=== PATIENT | female | born 1980 | race Caucasian/White ===

== ENCOUNTER 2023-02-06 01:27 | Emergency (ER) | payer OTHER, MEDICAID, SELFPAY ==
[2023-02-06 01:35] VITALS: BP 145/91; PULSE 109; RESP 18; TEMP 37.6; O2SAT 96; BMI 40.3
[2023-02-06 02:03] LABS: MANUAL DIFF FLAG NO
[2023-02-06 02:05] LABS: Basophils Percent Auto 0.2 % (0-2); Eosinophils Percent Auto 0.1 % (0-4); Hematocrit 36.3 % (37.0-47.0); Hemoglobin 11.4 g/dl (12.0-16.0); Imm Gran Abs Auto 0.12 X10*3/uL (0.00-0.03); Imm Gran Pct Auto 0.7 % (0.0-0.4); Lymphocytes Absolute Auto 0.7 X10*3/uL (1.2-4.9); Lymphocytes Percent Auto 3.7 % (20-40); Mean Corpuscular HGB Conc 31.4 g/dl (31.0-35.0); Mean Corpuscular Hemoglobin 23.8 pg (27.0-33.0); Mean Corpuscular Volume 75.8 fL (80.0-98.0); Monocytes Absolute Auto 1.2 X10*3/uL (0.1-1.2); Monocytes Percent Auto 6.5 % (2-11); Neutrophils Absolute Auto 15.9 x10*3/uL (2.0-8.3); Neutrophils Percent Auto 88.8 % (45-73); Platelet Count 249 X10*3/uL (160-400); Red Blood Count 4.79 X10*6/uL (4.20-5.50); Red Cell Distribution Width 19.3 % (11.0-16.0); White Blood Count 17.9 X10*3/uL (4.8-10.8)
[2023-02-06 02:06] VITALS: BP 140/85; PULSE 108; RESP 12; TEMP 38.2; O2SAT 96
--- NOTE | 2023-02-06 02:06 | ED.GENADULT ---
HPI - General Adult General Chief complaint: General Medical Stated complaint: Fever/Vomiting/Weakness Time Seen by Provider: 02/06/23 02:06 Source: patient Mode of arrival: ambulatory Limitations: no limitations History of Present Illness HPI narrative: Patient is 42 years old otherwise healthy been having sore throat fever body aches for last 2 days patient and daughter was also sick last week temperature was 101 degrees at home patient was seen at urgent care earlier today negative COVID/flu/ strep comes back negative patient been nauseated and vomiting unable to hold anything down no abdominal pain Related Data Previous Rx's Medication Instructions Recorded amoxicillin 875 mg-potassium 1 tab PO BID #20 tabs 02/06/23 clavulanate 125 mg tablet ibuprofen 600 mg tablet 600 mg PO Q6H PRN fever or pain 02/06/23 #30 tabs Allergies Allergy/AdvReac Type Severity Reaction Status Date / Time No Known Allergies Allergy Verified 02/06/23 01:35 [No Known Allergies*] Review of Systems Review of Systems: Yes all other systems are reviewed and are negative [facility] Social History Social History Advance Directives: No Advance Directives Information Provided: Yes Physical Exam ED Vital Signs: Vital Signs - 24 hr 02/06/23 01:35 02/06/23 02:06 02/06/23 04:16 Temperature 99.6 F 100.7 F H 99 F Pulse Rate 109 H 108 H 95 Respiratory Rate 18 12 16 Blood Pressure 145/91 H 140/85 H 127/72 Pulse Oximetry 96 96 97 Oxygen Delivery Method Room Air Room Air Room Air BMI result Body Mass Index 40.3 Appearance: Alert. Oriented X3. No acute distress. ENT: Tonsillar exudate bilateral with erythema of the posterior pharynx. Oral Mucosa moist Neck: Normal inspection. Neck supple. CVS: Normal heart rate and rhythm. Pulses normal. Respiratory: No respiratory distress. Equal air entry bilateral, no wheezing/rales/rhonchi Abdomen: Soft and nontender. Bowel sounds are present, Skin: Skin warm and dry. Normal skin color. Normal skin turgor. Extremities: No lower extremity edema. No calf tenderness Neuro: Oriented X 3. No motor deficit. Medications Administered Discontinued Medications Generic Name Dose Route Start Last Admin Trade Name Freq PRN Reason Stop Dose Admin Sodium Chloride 1,000 mls @ 999 mls/hr 02/06/23 02:16 02/06/23 03:27 Ns IV 02/06/23 03:16 Infused .Q1H1M ONE Infusion Ceftriaxone Sodium 1 gm/ 50 mls @ 100 mls/hr 02/06/23 02:16 02/06/23 03:03 Sodium Chloride IV 02/06/23 02:45 Infused ONCE ONE Infusion Sodium Chloride 1,000 mls @ 999 mls/hr 02/06/23 03:46 02/06/23 03:59 Ns IV 02/06/23 04:46 999 mls/hr .Q1H1M ONE Administration Ketorolac Tromethamine 30 mg 02/06/23 02:16 02/06/23 02:33 Ketorolac Tromethamine 30 Mg/Ml Vial IVPUSH 02/06/23 02:17 30 mg ONCE ONE Administration Ondansetron HCl 4 mg 02/06/23 02:16 02/06/23 02:33 Ondansetron Hcl 4 Mg/2 Ml Vial IVPUSH 02/06/23 02:17 4 mg ONCE ONE Administration Prochlorperazine Edisylate 10 mg 02/06/23 03:46 02/06/23 03:59 Prochlorperazine Edisylate 10 Mg/2 Ml Vial IVPUSH 02/06/23 03:47 10 mg ONCE ONE Administration Medical Decision Making Medical Decision Making [facility] Narrative: Patient has significant erythema and exudate in the tonsillar area likely cause fever meeting the criteria for sepsis likely from pharyngitis lactic acid level is normal blood cultures were drawn patient received a dose of Rocephin in the ED will give IV fluids and p.o. challenge patient urine showed RBCs patient currently on her menstrual period Differential Diagnosis Differential Diagnoses: The differential diagnosis associated with the presentation includes Tonsillar abscess/tonsillitis/strep pharyngitis/viral pharyngitis Admission/Observation Consideration of admission/observation: Escalation of care including admission/observation considered Lab Data [facility] Lab Attestation statement: I reviewed the patient's lab results. 02/06/23 01:57 02/06/23 01:57 Labs: Lab Results 02/06/23 02/06/23 02/06/23 Range/Units 01:57 01:57 01:57 WBC 17.9 H (4.8-10.8) X10*3/uL RBC 4.79 (4.20-5.50) X10*6/uL Hgb 11.4 L (12.0-16.0) g/dl Hct 36.3 L (37.0-47.0) % MCV 75.8 L (80.0-98.0) fL MCH 23.8 L (27.0-33.0) pg MCHC 31.4 (31.0-35.0) g/dl RDW 19.3 H (11.0-16.0) % Plt Count 249 (160-400) X10*3/uL MPV 10.0 (9.4-12.3) fL Immature Gran % (Auto) 0.7 H (0.0-0.4) % Neut % (Auto) 88.8 H (45-73) % Lymph % (Auto) 3.7 L (20-40) % [place] % (Auto) 6.5 (2-11) % Eos % (Auto) 0.1 (0-4) % Baso % (Auto) 0.2 (0-2) % Lymph # (Auto) 0.7 L (1.2-4.9) X10*3/uL [place] # (Auto) 1.2 (0.1-1.2) X10*3/uL Eos # (Auto) 0.0 (0.0-0.4) X10*3/uL Baso # (Auto) 0.0 (0.0-0.2) X10*3/uL Abs Immat Gran (auto) 0.12 H (0.00-0.03) X10*3/uL Absolute Neuts (auto) 15.9 H (2.0-8.3) x10*3/uL Absolute Nucleated RBC 0.000 (0.0-0.012) X10*3/uL Nucleated RBC % (auto) 0.0 (0.0-0.2) /100WBC Sodium 135 (135-145) mmol/L Potassium 3.6 (3.3-5.1) mmol/L Chloride 105 (96-108) mmol/L Carbon Dioxide 22 (22-29) mmol/L Anion Gap 12 (12-20) BUN 5 L (9-16) mg/dL Creatinine 0.84 (0.5-1.4) mg/dL Estim Creat Clear Calc 87.3 Estimated GFR > 60 Random Glucose 138 H (60-115) mg/dL Lactic Acid (0.5-2.0) mmol/L Calcium 9.5 (8.4-10.2) mg/dL Total Bilirubin 0.5 (0.0-1.0) mg/dL Direct Bilirubin 0.3 (0.0-0.5) mg/dL AST 27 (5-31) U/L ALT 31 (0-31) U/L Alkaline Phosphatase 98 (39-117) U/L Total Protein 7.8 (6.5-8.0) g/dL Albumin 4.1 (3.5-5.0) g/dL Lipase 11 (8-78) U/L Urine Color Urine Appearance Urine pH (5.0-9.0) Ur Specific [place] (1.005-1.025) Urine Protein (Neg-Trace) mg/dL Urine Glucose (UA) (Negative) mg/dL Urine Ketones (Negative) mg/dL Urine Blood (Negative) Urine Nitrite (Negative) Ur Leukocyte Esterase (Negative) Urine RBC (0-2) /HPF Urine WBC (0-5) /HPF Ur Squamous Epith Cells (0-2) /HPF Urine Bacteria (None Seen) Hyaline Casts (0-2) /LPF COVID-19 ([facility]) (Negative) COVID-19 Clin Com Influenza Type A ([place]) Negative (Negative) Influenza Type B ([place]) Negative (Negative) Influenza A & B Note See Note S. pyogenes GrpA [place] (Negative) 02/06/23 02/06/23 02/06/23 Range/Units 01:57 02:31 02:31 WBC (4.8-10.8) X10*3/uL RBC (4.20-5.50) X10*6/uL Hgb (12.0-16.0) g/dl Hct (37.0-47.0) % MCV (80.0-98.0) fL MCH (27.0-33.0) pg MCHC (31.0-35.0) g/dl RDW (11.0-16.0) % Plt Count (160-400) X10*3/uL MPV (9.4-12.3) fL Immature Gran % (Auto) (0.0-0.4) % Neut % (Auto) (45-73) % Lymph % (Auto) (20-40) % [place] % (Auto) (2-11) % Eos % (Auto) (0-4) % Baso % (Auto) (0-2) % Lymph # (Auto) (1.2-4.9) X10*3/uL [place] # (Auto) (0.1-1.2) X10*3/uL Eos # (Auto) (0.0-0.4) X10*3/uL Baso # (Auto) (0.0-0.2) X10*3/uL Abs Immat Gran (auto) (0.00-0.03) X10*3/uL Absolute Neuts (auto) (2.0-8.3) x10*3/uL Absolute Nucleated RBC (0.0-0.012) X10*3/uL Nucleated RBC % (auto) (0.0-0.2) /100WBC Sodium (135-145) mmol/L Potassium (3.3-5.1) mmol/L Chloride (96-108) mmol/L Carbon Dioxide (22-29) mmol/L Anion Gap (12-20) BUN (9-16) mg/dL Creatinine (0.5-1.4) mg/dL Estim Creat Clear Calc Estimated GFR Random Glucose (60-115) mg/dL Lactic Acid 0.7 (0.5-2.0) mmol/L Calcium (8.4-10.2) mg/dL Total Bilirubin (0.0-1.0) mg/dL Direct Bilirubin (0.0-0.5) mg/dL AST (5-31) U/L ALT (0-31) U/L Alkaline Phosphatase (39-117) U/L Total Protein (6.5-8.0) g/dL Albumin (3.5-5.0) g/dL Lipase (8-78) U/L Urine Color Urine Appearance Urine pH (5.0-9.0) Ur Specific [place] (1.005-1.025) Urine Protein (Neg-Trace) mg/dL Urine Glucose (UA) (Negative) mg/dL Urine Ketones (Negative) mg/dL Urine Blood (Negative) Urine Nitrite (Negative) Ur Leukocyte Esterase (Negative) Urine RBC (0-2) /HPF Urine WBC (0-5) /HPF Ur Squamous Epith Cells (0-2) /HPF Urine Bacteria (None Seen) Hyaline Casts (0-2) /LPF COVID-19 ([facility]) Negative (Negative) COVID-19 Clin Com See Note Influenza Type A ([place]) (Negative) Influenza Type B ([place]) (Negative) Influenza A & B Note S. pyogenes GrpA [place] Negative (Negative) 02/06/23 Range/Units 04:22 WBC (4.8-10.8) X10*3/uL RBC (4.20-5.50) X10*6/uL Hgb (12.0-16.0) g/dl Hct (37.0-47.0) % MCV (80.0-98.0) fL MCH (27.0-33.0) pg MCHC (31.0-35.0) g/dl RDW (11.0-16.0) % Plt Count (160-400) X10*3/uL MPV (9.4-12.3) fL Immature Gran % (Auto) (0.0-0.4) % Neut % (Auto) (45-73) % Lymph % (Auto) (20-40) % [place] % (Auto) (2-11) % Eos % (Auto) (0-4) % Baso % (Auto) (0-2) % Lymph # (Auto) (1.2-4.9) X10*3/uL [place] # (Auto) (0.1-1.2) X10*3/uL Eos # (Auto) (0.0-0.4) X10*3/uL Baso # (Auto) (0.0-0.2) X10*3/uL Abs Immat Gran (auto) (0.00-0.03) X10*3/uL Absolute Neuts (auto) (2.0-8.3) x10*3/uL Absolute Nucleated RBC (0.0-0.012) X10*3/uL Nucleated RBC % (auto) (0.0-0.2) /100WBC Sodium (135-145) mmol/L Potassium (3.3-5.1) mmol/L Chloride (96-108) mmol/L Carbon Dioxide (22-29) mmol/L Anion Gap (12-20) BUN (9-16) mg/dL Creatinine (0.5-1.4) mg/dL Estim Creat Clear Calc Estimated GFR Random Glucose (60-115) mg/dL Lactic Acid (0.5-2.0) mmol/L Calcium (8.4-10.2) mg/dL Total Bilirubin (0.0-1.0) mg/dL Direct Bilirubin (0.0-0.5) mg/dL AST (5-31) U/L ALT (0-31) U/L Alkaline Phosphatase (39-117) U/L Total Protein (6.5-8.0) g/dL Albumin (3.5-5.0) g/dL Lipase (8-78) U/L Urine Color Yellow Urine Appearance Turbid Urine pH 5.5 (5.0-9.0) Ur Specific [place] 1.015 (1.005-1.025) Urine Protein 30 (1+) H (Neg-Trace) mg/dL Urine Glucose (UA) Negative (Negative) mg/dL Urine Ketones 15 (Negative) mg/dL Urine Blood Large (3+) H (Negative) Urine Nitrite Negative (Negative) Ur Leukocyte Esterase Trace H (Negative) Urine RBC 11-20 H (0-2) /HPF Urine WBC 0-5 (0-5) /HPF Ur Squamous Epith Cells 3-5 (0-2) /HPF Urine Bacteria Trace (None Seen) Hyaline Casts 0-2 (0-2) /LPF COVID-19 ([facility]) (Negative) COVID-19 Clin Com Influenza Type A ([place]) (Negative) Influenza Type B ([place]) (Negative) Influenza A & B Note S. pyogenes GrpA [place] (Negative) Discharge Plan Discharge Clinical Impression: Acute bacterial pharyngitis Patient Disposition: Home, Self-Care Instructions: Pharyngitis (ED) Additional Instructions: Drink plenty of fluids Take antibiotic as prescribed Tylenol/Motrin for fever and pain Report to the ER/PCP if not better Prescriptions: New ibuprofen 600 mg tablet 600 mg PO Q6H PRN (Reason: fever or pain) Qty: 30 0RF amoxicillin-pot clavulanate 875-125 mg tablet 1 tab PO BID Qty: 20 0RF
[2023-02-06 02:19] LABS: Alanine Aminotransferase 31 U/L (0-31); Albumin Level 4.1 g/dL (3.5-5.0); Alkaline Phosphatase 98 U/L (39-117); Anion Gap 12 (12-20); Aspartate Amino Transferase 27 U/L (5-31); Bilirubin Direct 0.3 mg/dL (0.0-0.5); Bilirubin Total 0.5 mg/dL (0.0-1.0); Blood Urea Nitrogen 5 mg/dL (9-16); COVID-19 Test Negative (Negative); Calcium 9.5 mg/dL (8.4-10.2); Carbon Dioxide 22 mmol/L (22-29); Chloride 105 mmol/L (96-108); Creatinine Clr Calc Pharmacy 87.3; Estimated Glomerular Filt Rate > 60; Glucose Random 138 mg/dL (60-115); IDNOW Serial# 08D9AD1C; IDNOW Serial# BCCEAD1C; Influenza A Negative (Negative); Influenza B2 Negative (Negative); Lipase 11 U/L (8-78); Potassium 3.6 mmol/L (3.3-5.1); Sodium 135 mmol/L (135-145); Total Protein 7.8 g/dL (6.5-8.0)
--- NOTE | 2023-02-06 02:29 | PC.NURSE ---
iv line placed and blood cultures drawn. strep swab sent.
[2023-02-06] MEDS: cefTRIAXone sodium 1 GM in 0.9 % Sodium Chloride 50 ML IV (02:33)
[2023-02-06] MEDS: ondansetron HCL 4 MG/2 ML VIAL IVPUSH (02:33)
[2023-02-06] MEDS: Ketorolac Tromethamine 30 MG/ML VIAL IVPUSH (02:33)
[2023-02-06] MEDS: 0.9 % Sodium Chloride 1,000 ML 999 ML IV ×2 (02:34→03:59)
[2023-02-06 02:44] LABS: IDNOW Serial# 08D9AD1C; Strep A Nucleic Acid Negative (Negative)
[2023-02-06 02:52] LABS: Lactic Acid 0.7 mmol/L (0.5-2.0)
[2023-02-06] MEDS: Prochlorperazine Edisylate 10 MG/2 ML VIAL IVPUSH (03:59)
[2023-02-06 04:16] VITALS: BP 127/72; PULSE 95; RESP 16; TEMP 37.2; O2SAT 97
[2023-02-06 04:29] LABS: Appearance Urine Turbid; Color Urine Yellow; Glucose Urine UA Negative (Negative); Leukocyte Esterase Urine Trace (Negative); Nitrite Urine Negative (Negative); PH 5.5 (5.0-9.0); Specific Gravity - Urine 1.015 (1.005-1.025); UMIC TRIGGER UACC YES; Urine Blood Large (3+) (Negative); Urine Ketones 15 mg/dL (Negative); Urine Protein 30 (1+) mg/dL (Neg-Trace)
[2023-02-06 04:31] LABS: Bacteria Urine Trace (None Seen); Hyaline Casts Urine 0-2 /LPF (0-2); WBC Urine 0-5 /HPF (0-5)
[2023-02-06 05:16] VITALS: PULSE 97; RESP 17; TEMP 37.1; O2SAT 98
--- NOTE | 2023-02-06 05:17 | PC.NURSE ---
pt reports feeling much better after compazine administration and second liter bolus of fluids. pt appearing more comfortable. HR and temperature improved. respirations even and unlabored.
== END 2023-02-06 05:19 | disposition home or self-care (01) ==
PROVIDERS: Emergency Provider Internal Medicine
DX: J02.9 Acute pharyngitis, unspecified (principal); R50.9 Fever, unspecified; R11.2 Nausea with vomiting, unspecified; Z20.822 Contact with and (suspected) exposure to COVID-19; Z20.828 Contact with and (suspected) exposure to other viral communicable diseases; Z79.899 Other long term (current) drug therapy
CPT/HCPCS: 36415; 80048; 80076; 81001; 83605; 83690; 85025; 87040; 87502; 87635; 87651; 96361; 96365; 96375; 99284; J0696; J1885; J2405

== ENCOUNTER 2024-03-27 12:40 | Emergency (ER) | payer BC, OTHER, SELFPAY ==
--- NOTE | ~2024-03-27 | XR_ITS ---
STUDY: Right ankle and foot INDICATION: Rolled ankle yesterday, pain laterally. COMPARISON: None TECHNIQUE: 2 view right ankle, 3 view right foot FINDINGS: Mild lateral soft tissue swelling about the ankle but no fracture or dislocation. Mortise is intact. Alignment and articulations of the foot are maintained. Multiple rounded calcifications identified lateral plantar aspect of the foot at the level of the cuboid. Calcaneal spurring. No focal soft tissue swelling. XR/XR foot RT min 3V IMPRESSION: Mild lateral ankle soft tissue swelling. No acute bony pathology right ankle and foot. Electronically signed by: Guerita Benjamin MD 03/27/2024 03:08 PM EDT
--- NOTE | ~2024-03-27 | XR_ITS ---
STUDY: Right ankle and foot INDICATION: Rolled ankle yesterday, pain laterally. COMPARISON: None TECHNIQUE: 2 view right ankle, 3 view right foot FINDINGS: Mild lateral soft tissue swelling about the ankle but no fracture or dislocation. Mortise is intact. Alignment and articulations of the foot are maintained. Multiple rounded calcifications identified lateral plantar aspect of the foot at the level of the cuboid. Calcaneal spurring. No focal soft tissue swelling. XR/XR ankle RT min 3V IMPRESSION: Mild lateral ankle soft tissue swelling. No acute bony pathology right ankle and foot. Electronically signed by: Guerita Benjamin MD 03/27/2024 03:08 PM EDT
[2024-03-27 13:36] VITALS: BP 142/88; PULSE 94; RESP 20; TEMP 36.8; O2SAT 100; BMI 37.4
--- NOTE | 2024-03-27 13:41 | ED_ITS ---
HPI - Extremity Injury (Lower) General Chief Complaint: Extremity Injury, Lower Stated Complaint: rolled ankle Time Seen by Provider: 03/27/24 13:44 Source: patient, RN notes reviewed and old records reviewed Mode of arrival: ambulatory History of Present Illness ED Provider: Carmen Kahn PA-C HPI Narrative: 43-year-old female with no significant past medical history presenting to the ED complaining of right ankle pain and swelling s/p rolling ankle while walking to vehicle yesterday. Denies fall all the way to ground. Reports increasing pain today/with ambulation and movement. Denies numbness, tingling, weakness, injury to the area, head trauma or LOC Related Data Previous Rx's ?Medication ?Instructions ?Recorded amoxicillin 875 mg-potassium 1 tab PO BID #20 tabs 02/06/23 clavulanate 125 mg tablet ibuprofen 600 mg tablet 600 mg PO Q6H PRN fever or pain 02/06/23 #30 tabs Allergies Allergy/AdvReac Type Severity Reaction Status Date / Time No Known Allergies Allergy Verified 03/27/24 13:37 [No Known Allergies*] Review of Systems Review of Systems: Yes all other systems are reviewed and are negative Constitutional: Constitutional: Reports as per HPI [facility] Past Medical History Attestation statement: The following information was validated with the patient. Source: old records reviewed Social History Social History Advance Directives: No Do you have a plan to hurt others: No Plan Physical Exam Vital Signs: Vital Signs: Last Vital Signs Temp 97.8 F 03/27/24 15:06 Pulse 88 03/27/24 15:06 Resp 16 03/27/24 15:06 BP 133/86 03/27/24 15:06 Pulse Ox 98 03/27/24 15:06 O2 Del Method Room Air 03/27/24 15:06 BMI result Body Mass Index 37.4 Const: General: cooperative, healthy appearing and no acute distress Orie ntation/consciousness: patient oriented x3 Limitations: no limitations HEENT: Head: Yes normal to inspection and Yes atraumatic Ears: hearing grossly normal bilaterally General nose exam: Normal external nose present Face and sinus: Yes normal facial exam Eyes: General: appearance normal, both eyes and all related structures EOM: EOMs intact bilaterally Neck: Neck: Yes normal visual inspection and Yes no meningeal signs Resp: Effort & Inspection: normal respiratory effort and no respiratory distress Cardio: Rate: regular rate Skin: Rashes: no rashes Wounds: no wounds Neuro: General: patient oriented x3, tone normal and no meningeal signs Cranial nerves: Yes CN's II-XII intact bilaterally Gait exam (Neuro): Normal gait present Extrem: Other: Right lateral malleolus with appreciable swelling and tenderness to palpation. Limited ROM secondary to pain. Proximal foot with mild tenderness. Neurovascularly intact. No crepitus. Course Course Course Narrative: This is a rapid medical exam performed by Delicia Handley PA-C. The patient is a 43-year-old female who presents with right ankle sprain. Patient states she was walking to her car when she rolled her ankle. The ankle is currently wrapped, she has a minimal flexion and extension, she has tenderness to palpation along lateral aspect of the ankle. With some extension to the metatarsals. We will obtain x-rays of the foot and ankle, giving Tylenol. No indication for labs. XR foot RT min 3V/XR ankle RT min 3V IMPRESSION: Mild lateral ankle soft tissue swelling. No acute bony pathology right ankle and foot. > Aircast applied Results discussed with patient including worrisome signs and symptoms and strict return precautions, and when to return to the emergency department. They verbalized understanding and feel safe for discharge at this time. Medications Administered Discontinued Medications Generic Name Dose Route Start Last Admin Trade Name Freq PRN Reason Stop Dose Admin Acetaminophen 975 mg 03/27/24 13:40 03/27/24 14:37 Acetaminophen 325 Mg Tablet PO 03/27/24 13:41 975 mg ONCE ONE Administration Medical Decision Making Medical Decision Making MDM Narrative: 43-year-old female with no significant past medical history presenting to the ED complaining of right ankle pain and swelling s/p rolling ankle while walking to vehicle yesterday. On exam vital signs stable, NAD, nontoxic appearing, physical exam as noted above. Concern for ankle sprain vs fracture. No evidence of septic joint/arthritis or cellulitis Plan: X-rays Please refer to course for remaining clinical decision making, interpretation of labs/imaging results, and discussions with consultants and/or family members. Differential Diagnosis Differential Diagnoses: The differential diagnosis associated with the presentation includes As above Independent Interpretation I performed an independent interpretation of an: Plain X-Ray Radiology Impression Discussion of test interpretation with radiology: I have reviewed the radiologist's reading. External Record Review External record reviewed: Inpatient record, Office record, Outpatient record, Prior outpatient labs, Prior outpatient radiology, Primary care record and Outside ED record Tests considered The following testing was considered but not selected: As above Prescription Management I considered prescription management with: Pain Medication Discharge Plan Discharge Clinical Impression: Ankle sprain and strain Patient Disposition: Home, Self-Care Instructions: Ankle Sprain (DC) Additional Instructions: Your x-ray shows soft tissue swelling. No fracture. Wear Aircast as needed for comfort and stability Ice and elevate Take ibuprofen and Tylenol for pain/swelling Follow up with her doctor If symptoms persist or worsen return to the ED Prescriptions: No Action ibuprofen 600 mg tablet 600 mg PO Q6H PRN (Reason: fever or pain) Qty: 30 0RF amoxicillin-pot clavulanate 875-125 mg tablet 1 tab PO BID Qty: 20 0RF Referrals: Linsey White PA-C [Primary Care Provider] - 1 week Print Language: Somali
[2024-03-27] MEDS: Acetaminophen 325 MG TABLET 975 MG PO (14:37)
[2024-03-27 15:06] VITALS: BP 133/86; PULSE 88; RESP 16; TEMP 36.6; O2SAT 98
[2024-03-27 16:57] VITALS: BP 133/86; PULSE 88; RESP 16; TEMP 36.6; O2SAT 98
== END 2024-03-27 16:57 | disposition home or self-care (01) ==
PROVIDERS: Emergency Provider Emergency Medicine; PCP Physician Assistant Medical
DX: S93.401A Sprain of unspecified ligament of right ankle, initial encounter (principal); X50.1XXA Overexertion from prolonged static or awkward postures, initial encounter; Y93.89 Activity, other specified; Y92.89 Other specified places as the place of occurrence of the external cause; Y99.8 Other external cause status
CPT/HCPCS: 73610; 73630; 99283; 99284

== ENCOUNTER 2024-06-08 19:16 | Emergency (ER) | payer OTHER, SELFPAY ==
--- NOTE | 2024-06-08 | ECG_ITS ---
Test Reason : TACHYCARDIA Blood Pressure : / mmHG Vent. Rate : 121 BPM Atrial Rate : 121 BPM P-R Int : 132 ms QRS Dur : 082 ms QT Int : 314 ms P-R-T Axes : 040 025 -06 degrees QTc Int : 445 ms Sinus tachycardia Nonspecific T wave abnormality Abnormal ECG No previous ECGs available Referred By: Kaylee Álvarez Electronically Signed By:CHRISTOPH GARCIA MD
--- NOTE | ~2024-06-08 | XR_ITS ---
CLINICAL HISTORY: sob, cp Chest Radiograph Comparison: 09/21/17 Findings: No cardiomegaly. Normal mediastinal contours. No pneumothorax. No opacity. No pleural effusion. Normal upper abdomen. No acute fracture. Impression: No acute findings. This document has been electronically signed by: Marissa Elliott MD on 06/08/2024 20:33:45
--- NOTE | ~2024-06-08 | CT_ITS ---
CLINICAL HISTORY: CP, Tachycardic, + dimer CT angiography chest with contrast. 3D Postprocessing. Comparison: CR - XR CHEST 1V - 06/08/24 19:55 EST Findings: The heart is normal size. RV/LV ratio is normal. The thoracic aorta is normal caliber. No pulmonary artery filling defects. The visualized thyroid and mediastinum are unremarkable. Focal area of infiltrate and reticulonodular opacities in the right lower lobe. There is a 1.5 cm lung cyst in the superior segment of the left lower lobe. No effusion or pneumothorax. The visualized upper abdomen is unremarkable. The bones are intact. IMPRESSION: 1. No pulmonary embolus. 2. Right lower lobe pneumonia. This document has been electronically signed by: Nam Kent MD on 06/09/2024 00:32:49
[2024-06-08 19:27] VITALS: BP 164/91; PULSE 137; RESP 20; TEMP 37.4; O2SAT 98; BMI 37.4
--- NOTE | 2024-06-08 19:41 | ED.SOB ---
HPI - SOB/Dyspnea General Chief Complaint: Dyspnea Stated Complaint: gen med Time Seen by Provider: 06/08/24 19:18 Source: patient Mode of arrival: ambulatory Limitations: no limitations History of Present Illness ED Provider: Dr. Kaylee Álvarez HPI Narrative: Patient comes in the emergency room complaining of chest tightness radiating towards the back. Patient states that she has had on and off of pneumonia infections treated with antibiotics, inhalers and prednisone although she is not asthmatic. Patient states that the last time was April of 2024. Patient states that since then she has not quite recovered, ongoing cough. However, today patient was at work, states that she started having more rib pain/back pain. Patient states that over last 2-3 days, her Apple watch has been warning her that she has an increased heart rate between 130-140. Patient denies any fever or chills. Related Data Previous Rx's ?Medication ?Instructions ?Recorded amoxicillin 875 mg-potassium 1 tab PO BID #20 tabs 02/06/23 clavulanate 125 mg tablet ibuprofen 600 mg tablet 600 mg PO Q6H PRN fever or pain 02/06/23 #30 tabs benzonatate 100 mg capsule 100 mg PO TID PRN cough #15 caps 06/09/24 levofloxacin 750 mg tablet 750 mg PO DAILY #9 tabs 06/09/24 Allergies Allergy/AdvReac Type Severity Reaction Status Date / Time No Known Allergies Allergy Verified 06/08/24 19:30 [No Known Allergies*] Review of Systems Review of Systems: Constitutional : No Weight loss, No Fever, No Chills, No Night Sweats, No Fatigue, No Malaise ENT/Mouth : No Hearing loss, No Ear Pain, No Nasal Congestion, No Sinus Pain, No Hoarseness, No sore throat, No Rhinorrhea, No Swallowing Difficulty Eyes: No Eye Pain, No Swelling, No Redness, No Foreign Body, No Discharge, No Vision Changes Cardiovascular : No Chest Pain, No SOB, No Dyspnea on Exertion, No Orthopnea, No Edema, complaining of palpitations and dizziness Respiratory : Complaining of cough for several weeks Gastrointestinal : No Nausea, No Vomiting, No Diarrhea, No Constipation, No abdominal Pain, No Hematochezia, No Melena Genitourinary : no irregular bleeding, No Dysuria, No Urinary Frequency, No Hematuria, No Urinary Incontinence, No Urgency, No Flank Pain, No Urinary Flow Changes, No Hesitancy Musculoskeletal : No joint pain, No Myalgias, No Joint Swelling Skin : No Skin Lesions, No rash Neuro : No Weakness, No Numbness, No Paresthesias, No Loss of Consciousness, No Dizziness, No Headache Psych : No Anxiety/Panic, No Depression, No SI/HI/AH/VH, No Social Issues, Heme/Lymph: No Bruising, No Bleeding,No Lymphadenopathy Endocrine : No Polyuria, No Polydipsia, No Temperature Intolerance [facility] Social History Social History Smoked in Last 30 Days: No Use of substances other than those prescribed or required for medical reasons: No Advance Directives: No Advance Directives Information Provided: Yes Do you have a plan to hurt others: No Plan Physical Exam Vital Signs: Vital Signs: Last Vital Signs Temp 98.5 F 06/09/24 00:45 Pulse 91 06/09/24 00:45 Resp 16 06/09/24 00:45 BP 130/63 06/09/24 00:45 Pulse Ox 99 06/09/24 00:45 O2 Del Method Room Air 06/09/24 00:45 BMI result Body Mass Index 37.4 Const: Other: Appearance: Alert. Oriented X3. No acute distress. Eyes: Pupils equal, round and reactive to light. ENT: Pharynx normal. Neck: Normal inspection. Neck supple. No lymph nodes noted. No crepitus CVS: Tachycardic, regular rhythm, heart rate in the 120s to 130s. Pulses normal. Normal S1 and S2 Respiratory: No respiratory distress. Breath sounds normal. No Wheezing. No rales Abdomen: Soft and nontender. No rigidity. No distention. Skin: Skin warm and dry. Normal skin color. Normal skin turgor. Extremities: No lower extremity edema. No Lacerations. No Rash Neuro: Oriented X 3. No motor deficit. No sensory deficit. Moving all extremities. No slurred speech. CN 2 through 12 grossly intact Psych: calm, cooperative, normal affect Medications Administered Discontinued Medications Generic Name Dose Route Start Last Admin Trade Name Freq PRN Reason Stop Dose Admin Sodium Chloride 1,000 mls @ 999 mls/hr 06/08/24 19:34 06/08/24 20:57 Ns IVCONT 06/08/24 20:34 Infused .Q1H1M ONE Infusion Iohexol 65 ml 06/08/24 23:41 06/08/24 23:42 Iohexol 350 Mg/Ml 100 Ml Infus..Btl IV 06/08/24 23:42 65 ml ONCE ONE Administration Ketorolac Tromethamine 30 mg 06/08/24 19:43 06/08/24 19:59 Ketorolac Tromethamine 30 Mg/Ml Vial IVPUSH 06/08/24 19:44 30 mg ONCE ONE Administration Medical Decision Making Medical Decision Making [facility] Narrative: My interpretation of labs: Patient's white blood cell count 17.3, no significant electrolyte abnormality, troponin negative, hCG negative Chest x-ray does not show any acute abnormality. However, CTA does show right lower lobe pneumonia, no PE. I discussed with the patient that is concerning that she has had 4 episodes of pneumonia in less than a year. Patient will follow-up with pulmonology, patient was provided with the phone number for Dr. Lin's office Patient was given the 1st dose of levofloxacin 750 mg Patient is not wheezing, patient does not have any history of asthma or COPD, at this time, so it is not indicated. Lab Data [facility] Lab Attestation statement: I reviewed the patient's lab results. 06/08/24 20:02 06/08/24 20:02 Labs: Lab Results 06/08/24 06/08/24 06/08/24 Range/Units 20:01 20:02 20:07 WBC 17.3 H (4.8-10.8) X10*3/uL RBC 4.46 (4.20-5.50) X10*6/uL Hgb 10.3 L (12.0-16.0) g/dl Hct 33.0 L (37.0-47.0) % MCV 74.0 L (80.0-98.0) fL MCH 23.1 L (27.0-33.0) pg MCHC 31.2 (31.0-35.0) g/dl RDW 20.6 H (11.0-16.0) % Plt Count 340 D (160-400) X10*3/uL MPV 10.2 (9.4-12.3) fL Immature Gran % (Auto) 0.8 H (0.0-0.4) % Neut % (Auto) 84.9 H (45-73) % Lymph % (Auto) 8.5 L (20-40) % [place] % (Auto) 5.0 (2-11) % Eos % (Auto) 0.6 (0-4) % Baso % (Auto) 0.2 (0-2) % Lymph # (Auto) 1.5 (1.2-4.9) X10*3/uL [place] # (Auto) 0.9 (0.1-1.2) X10*3/uL Eos # (Auto) 0.1 (0.0-0.4) X10*3/uL Baso # (Auto) 0.0 (0.0-0.2) X10*3/uL Abs Immat Gran (auto) 0.14 H (0.00-0.03) X10*3/uL Absolute Neuts (auto) 14.7 H (2.0-8.3) x10*3/uL Absolute Nucleated RBC 0.000 (0.0-0.012) X10*3/uL Nucleated RBC % (auto) 0.0 (0.0-0.2) /100WBC PT 11.5 (10.9-12.4) SEC INR 1.0 (0.9-1.1) D-Dimer High Sensitivty 1120 NG/ML VBG pH 7.48 H (7.32-7.43) VBG pCO2 32 mmHg VBG pO2 48 mmHg VBG HCO3 24 (22-26) mmol/L VBG O2 Saturation 79.0 % VBG Base Excess 1.6 mmol/L Sodium 136 (135-145) mmol/L Potassium 3.3 (3.3-5.1) mmol/L Chloride 107 (96-108) mmol/L Carbon Dioxide 22 (22-29) mmol/L Anion Gap 10 L (12-20) BUN 8 L (9-16) mg/dL Creatinine 0.66 (0.5-1.4) mg/dL Estim Creat Clear Calc 104.2 Estimated GFR > 60 Random Glucose 143 H (60-115) mg/dL Lactic Acid 1.0 (0.5-2.0) mmol/L Calcium 8.8 D (8.4-10.2) mg/dL Total Bilirubin 0.4 (0.0-1.0) mg/dL Direct Bilirubin 0.1 (0.0-0.5) mg/dL AST 21 (5-31) U/L ALT 27 (0-31) U/L Alkaline Phosphatase 99 (39-117) U/L Troponin I High Sens < 2.7 (<3.5-17.0) ng/L Total Protein 7.5 (6.5-8.0) g/dL Albumin 3.9 (3.5-5.0) g/dL Beta HCG, Quant < 2 mIU/mL Influenza Type A (PCR) NEGATIVE (Negative) Influenza Type B (PCR) NEGATIVE (Negative) RSV RNA Qual (PCR) NEGATIVE (Negative) SARS-CoV-2 RNA (RT-PCR) NEGATIVE (Negative) Independent Interpretation I performed an independent interpretation of an: Plain X-Ray and CT Scan Radiology Impression Discussion of test interpretation with radiology: I have reviewed the radiologist's reading. Radiologist Impression: Findings: The heart is normal size. RV/LV ratio is normal. The thoracic aorta is normal caliber. No pulmonary artery filling defects. The visualized thyroid and mediastinum are unremarkable. Focal area of infiltrate and reticulonodular opacities in the right lower lobe. There is a 1.5 cm lung cyst in the superior segment of the left lower lobe. No effusion or pneumothorax. The visualized upper abdomen is unremarkable. The bones are intact. IMPRESSION: 1. No pulmonary embolus. 2. Right lower lobe pneumonia. Critical Care Time Critical Care Time Critical Care Time: Yes Total Critical Care Time: 45 Attestation: I have personally provided critical care time. Time includes review of lab data, radiology results, discussion with consultants, and monitoring for potential decompensation. Intervention performed as documented. Discharge Plan Discharge Clinical Impression: Pneumonia Patient Disposition: Home, Self-Care Instructions: Pneumonia (ED) Additional Instructions: Please follow-up with your primary care physician tomorrow. If you have any worsening or new symptoms, please return to the emergency room or call 911 Prescriptions: New levofloxacin 750 mg tablet 750 mg PO DAILY Qty: 9 0RF benzonatate 100 mg capsule 100 mg PO TID PRN (Reason: cough) Qty: 15 0RF No Action ibuprofen 600 mg tablet 600 mg PO Q6H PRN (Reason: fever or pain) Qty: 30 0RF amoxicillin-pot clavulanate 875-125 mg tablet 1 tab PO BID Qty: 20 0RF Referrals: Davidson Lin MD [Physician] - 06/11/24 Print Language: Chadian
[2024-06-08] MEDS: 0.9 % Sodium Chloride 1,000 ML 999 ML IVCONT (19:55)
[2024-06-08] MEDS: Ketorolac Tromethamine 30 MG/ML VIAL IVPUSH (19:59)
[2024-06-08 20:09] LABS: MANUAL DIFF FLAG NO
[2024-06-08 20:12] LABS: VBG Base Excess 1.6 mmol/L; VBG HCO3 24 mmol/L (22-26); VBG pCO2 32 mmHg; VBG pH 7.48 (7.32-7.43); VBG pO2 48 mmHg
[2024-06-08 20:13] LABS: Venous Blood Gas Refer to POC result
[2024-06-08 20:24] LABS: Basophils Percent Auto 0.2 % (0-2); Eosinophils Absolute Auto 0.1 X10*3/uL (0.0-0.4); Eosinophils Percent Auto 0.6 % (0-4); Hemoglobin 10.3 g/dl (12.0-16.0); Imm Gran Abs Auto 0.14 X10*3/uL (0.00-0.03); Imm Gran Pct Auto 0.8 % (0.0-0.4); Lymphocytes Absolute Auto 1.5 X10*3/uL (1.2-4.9); Lymphocytes Percent Auto 8.5 % (20-40); Mean Corpuscular HGB Conc 31.2 g/dl (31.0-35.0); Mean Corpuscular Hemoglobin 23.1 pg (27.0-33.0); Mean Platelet Volume 10.2 fL (9.4-12.3); Monocytes Absolute Auto 0.9 X10*3/uL (0.1-1.2); Neutrophils Absolute Auto 14.7 x10*3/uL (2.0-8.3); Neutrophils Percent Auto 84.9 % (45-73); Platelet Count 340 X10*3/uL (160-400); Red Blood Count 4.46 X10*6/uL (4.20-5.50); Red Cell Distribution Width 20.6 % (11.0-16.0); White Blood Count 17.3 X10*3/uL (4.8-10.8)
[2024-06-08 20:28] LABS: Prothrombin Time 11.5 SEC (10.9-12.4)
[2024-06-08 20:31] LABS: Alanine Aminotransferase 27 U/L (0-31); Albumin Level 3.9 g/dL (3.5-5.0); Alkaline Phosphatase 99 U/L (39-117); Anion Gap 10 (12-20); Aspartate Amino Transferase 21 U/L (5-31); Bilirubin Direct 0.1 mg/dL (0.0-0.5); Bilirubin Total 0.4 mg/dL (0.0-1.0); Blood Urea Nitrogen 8 mg/dL (9-16); Calcium 8.8 mg/dL (8.4-10.2); Carbon Dioxide 22 mmol/L (22-29); Chloride 107 mmol/L (96-108); Creatinine Clr Calc Pharmacy 104.2; Estimated Glomerular Filt Rate > 60; Glucose Random 143 mg/dL (60-115); Potassium 3.3 mmol/L (3.3-5.1); Sodium 136 mmol/L (135-145); Total Protein 7.5 g/dL (6.5-8.0)
[2024-06-08 20:39] LABS: Troponin-I High Sensitivity < 2.7 ng/L (<3.5-17.0)
[2024-06-08 20:47] LABS: Influenza A PCR NEGATIVE (Negative); Influenza B PCR NEGATIVE (Negative); Resp Syncy Virus RNA Qual PCR NEGATIVE (Negative); SARS COV2 PCR INHOUSE NEGATIVE (Negative)
[2024-06-08 21:18] LABS: D Dimer High Sensitivity 1120 NG/ML
[2024-06-08 22:37] VITALS: BP 152/80; PULSE 97; RESP 16; TEMP 36.9; O2SAT 98
[2024-06-08 23:14] LABS: HCG Quantitative < 2 mIU/mL
[2024-06-08] MEDS: iohexoL 350 MG/ML 100 ML INFUS..BTL 65 ML IV (23:42)
[2024-06-09 00:45] VITALS: BP 130/63; PULSE 91; RESP 16; TEMP 36.9; O2SAT 99
[2024-06-09] MEDS: levoFLOXacin 750 MG TABLET PO (01:29)
[2024-06-09 01:48] VITALS: BP 130/63; PULSE 91; RESP 16; TEMP 36.9; O2SAT 99
== END 2024-06-09 01:25 | disposition home or self-care (01) ==
PROVIDERS: Emergency Provider Emergency Medicine; PCP Physician Assistant Medical
DX: J18.9 Pneumonia, unspecified organism (principal); R05.9 Cough, unspecified; Z03.818 Encounter for observation for suspected exposure to other biological agents ruled out; Z87.01 Personal history of pneumonia (recurrent); Z79.899 Other long term (current) drug therapy
CPT/HCPCS: 0241U; 36415; 71045; 71275; 80048; 80076; 82803; 83605; 84484; 84702; 85025; 85379; 85610; 87040; 93005; 96361; 96374; 99285; J1885; Q9967

== ENCOUNTER → 2024-06-08 19:39 | Outpatient (BNV) | payer OTHER, SELFPAY | PROVIDERS: Emergency Provider Emergency Medicine; PCP Physician Assistant Medical; Visit Provider Radiology Diagnostic Radiology | DX: R06.02 Shortness of breath (principal); R07.9 Chest pain, unspecified; R00.0 Tachycardia, unspecified | CPT/HCPCS: 71045 ==

== ENCOUNTER → 2024-06-08 19:44 | Outpatient (BNV) | payer OTHER, SELFPAY | PROVIDERS: Emergency Provider Emergency Medicine; PCP Physician Assistant Medical; Visit Provider Internal Medicine Cardiovascular Disease | DX: R00.0 Tachycardia, unspecified (principal); R94.31 Abnormal electrocardiogram [ECG] [EKG] | CPT/HCPCS: 93010 ==

== ENCOUNTER 2024-07-06 10:17 | Outpatient (REF) | payer OTHER, SELFPAY ==
[2024-07-06 10:51] LABS: MANUAL DIFF FLAG NO
[2024-07-06 11:20] LABS: Basophils Percent Auto 0.3 % (0-2); Eosinophils Absolute Auto 0.1 X10*3/uL (0.0-0.4); Eosinophils Percent Auto 1.3 % (0-4); Hematocrit 34.3 % (37.0-47.0); Hemoglobin 10.2 g/dl (12.0-16.0); Imm Gran Abs Auto 0.05 X10*3/uL (0.00-0.03); Imm Gran Pct Auto 0.6 % (0.0-0.4); Lymphocytes Absolute Auto 2.1 X10*3/uL (1.2-4.9); Lymphocytes Percent Auto 23.6 % (20-40); Mean Corpuscular HGB Conc 29.7 g/dl (31.0-35.0); Mean Corpuscular Volume 74.1 fL (80.0-98.0); Mean Platelet Volume 10.2 fL (9.4-12.3); Monocytes Absolute Auto 0.8 X10*3/uL (0.1-1.2); Monocytes Percent Auto 8.6 % (2-11); Neutrophils Absolute Auto 5.9 x10*3/uL (2.0-8.3); Neutrophils Percent Auto 65.6 % (45-73); Platelet Count 342 X10*3/uL (160-400); Red Blood Count 4.63 X10*6/uL (4.20-5.50); Red Cell Distribution Width 20.6 % (11.0-16.0)
--- OUTSIDE RECORDS SUMMARY | 2024-07-06 11:22 | XMS_ITS | Clinical Summary ---
Author Organization [facility] it Address [address] [place] [address] Care Team Providers Care Policeman Name Role Phone Unavailable Primary Care Provider [...]
[2024-07-09 08:03] LABS: IgA 285 mg/dL (47-310); IgG 1031 mg/dL (600-1640); IgM 185 mg/dL (50-300)
[2024-07-09 15:14] LABS: Immunoglobulin G Subclass 1 537 mg/dL (382-929); Immunoglobulin G Subclass 2 288 mg/dL (241-700); Immunoglobulin G Subclass 3 101 mg/dL (22-178); Immunoglobulin G Subclass 4 11.9 mg/dL (4-86); Immunoglobulin G Total 908 mg/dL (600-1640)
[2024-07-12 17:43] LABS: Class Alternaria alternata 0; Class Aspergillus fumigatus 0; Class Bermuda Grass 0; Class Birch 0; Class Cat Dander 0; Class Cladosporium herbarum 0; Class Cockroach 0; Class Common Ragweed 0; Class Cottonwood 0; Class Derm. pterony 0; Class Dermatophagoides farinae 0; Class Dog Dander 0; Class Elm 0; Class Maple Box Elder 0; Class Mountain Cedar 0; Class Mouse Urine Protein 0; Class Mugwort 0; Class Oak 0; Class Penicillium crysogenum 0; Class Rough Pigweed 0; Class Sheep Sorrel 0; Class Sycamore 0; Class Timothy Grass 0; Class Walnut Tree 0; Class White Ash 0; Class White Mulberry 0; D001 IgE D pteronyssinus <0.10 kU/L; D002 - IgE D farinae <0.10 kU/L; E001 - IgE Cat Dander <0.10 kU/L; E005 - IgE Dog Dander <0.10 kU/L; E072-IgE Mouse Urine <0.10 kU/L; G002 IgE Bermuda Grass <0.10 kU/L; G006 - IgE Timothy Grass <0.10 kU/L; I006-IgE Cockroach, German <0.10 kU/L; Immunoglobulin E 37 kU/L (<OR=114); M001 IgE Penicillium chrysogen <0.10 kU/L; M002 - IgE Cladosporium herbar <0.10 kU/L; M003 - IgE Aspergillus fumigat <0.10 kU/L; M006 - IgE Alternaria alternat <0.10 kU/L; T001 IgE Maple/Box Elder <0.10 kU/L; T003 IgE Common Silver Birch <0.10 kU/L; T006 - IgE Cedar, Mountain <0.10 kU/L; T007 - IgE Oak, White <0.10 kU/L; T008 IgE Elm, American <0.10 kU/L; T010 - IgE Walnut <0.10 kU/L; T011 - IgE Maple Leaf Sycamore <0.10 kU/L; T014 - IgE Cottonwood <0.10 kU/L; T015 - IgE Ash, White <0.10 kU/L; T070 - IgE White Mulberry <0.10 kU/L; W001 - IgE Ragweed, Short <0.10 kU/L; W006 - IgE Mugwort <0.10 kU/L; W014 IgE Pigweed, Common <0.10 kU/L; W018 IgE Sheep Sorrel <0.10 kU/L
== END 2024-07-06 10:18 | disposition home or self-care (01) ==
LOC: HO.LAB 10:17
PROVIDERS: PCP Physician Assistant Medical; Referring Provider Emergency Medicine; Visit Provider Internal Medicine Pulmonary Disease
DX: R05.9 Cough, unspecified (principal); Z91.09 Other allergy status, other than to drugs and biological substances; J18.9 Pneumonia, unspecified organism; J98.4 Other disorders of lung
CPT/HCPCS: 36415; 82784; 82785; 85025; 86003

== ENCOUNTER 2024-07-06 10:17 | Outpatient (AMB) | payer OTHER, SELFPAY ==
--- NOTE | 2024-07-06 10:20 | A.OFFVIS_ITS ---
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 Patient is also complaining of chronic nonproductive cough ongoing for last year and half since she had COVID-19. Patient denies GERD symptoms. Her cough does get worse at nighttime. She has been using codeine syrup with some relief. Patient was tried on prednisone with no significant changes in her cough. She denies prior personal or family history of lung disease. Review of Systems Const Denies daytime sleepiness, Denies excessive sweating, Denies fatigue, Denies fever(s), Denies lethargy, Denies malaise, Denies night sweats, Denies snoring and Denies weight loss Eyes Denies blurry vision and Denies itchy eyes ENT Denies nasal congestion, Denies post nasal drip, Denies sinus pain, Denies sinus pressure and Denies other ( Thrush) Card Denies chest pain, Denies pedal edema, Denies dyspnea, Denies orthopnea and Denies paroxysmal nocturnal dyspnea Resp Reports cough, Denies hemoptysis, Denies excessive phlegm production, Denies dyspnea, Denies snoring and Denies wheezing GI Denies abdominal pain and Denies heartburn Musc Denies myalgias, Denies arthralgias and Denies joint swelling Skin/Breast Denies rash Neuro Denies memory loss and Denies seizure-like activity Psych Denies abnormal sleep pattern, Denies anxiety and Denies memory loss Endo Denies excessive sweating, Denies fatigue and Denies heat intolerance Marquise/Lymph Denies easy bruising Aller/Immun Denies itchy eyes, Denies seasonal rhinorrhea and Denies wheezing Physical Exam Vital Signs: Last Vital Signs Pulse 101 H 07/06/24 10:21 BP 138/84 07/06/24 10:21 Pulse Ox 98 07/06/24 10:21 Oxygen Delivery Method Room Air 07/06/24 10:21 BMI result Body Mass Index 40.1 Const General: no acute distress and alert Nutritional Appearance: obese Orientation/consciousness: Other orientation findings ( oriented) HEENT Head: Yes atraumatic Eyes General: appearance normal, both eyes and all related structures Sclerae: sclerae normal EOM: EOMs intact bilaterally Neck Neck: Yes supple Lymphatic: no lymphadenopathy noted Resp Effort & Inspection: normal respiratory effort and no use of accessory muscles Auscultation: clear to auscultation bilaterally Cardio Rate: regular rate Rhythm: regular rhythm Heart sounds: no gallops, no murmurs and no rubs Skin General skin exam: other ( warm) Extrem General: No clubbing, No cyanosis and No edema Assessment & Plan Assessment & Plan (1) Cough: Code(s): R05.9 - Cough, unspecified Category: Medical Plan: Unclear etiology, may have reactive airway disease allergic component. Continue on p.r.n. codeine. (2) Recurrent pneumonia: Code(s): J18.9 - Pneumonia, unspecified organism Category: Medical Plan: Will obtain immunoglobulins studies. (3) Environmental allergies: Code(s): Z91.09 - Other allergy status, other than to drugs and biological substances Category: Medical Plan: Will obtain IgE level, CBC with differential and RAST panel for further evaluation (4) Lung cyst: Code(s): J98.4 - Other disorders of lung Category: Medical Plan: Will repeat CT chest in 6 months to assess for changes. Orders: Orders Immunoglobulins,IgG IgA IgM Today Z91.09 - Other allergy status, other than to drugs and biological substances Resp Allergy Profile Region I Today Z91.09 - Other allergy status, other than to drugs and biological substances Immunoglobulin G Subclasses Today Z91.09 - Other allergy status, other than to drugs and biological substances PFT pulmonary function test Today R05.9 - Cough, unspecified Complete Blood Count Auto Diff Today R05.9 - Cough, unspecified CT chest wo IV con 12/03/24 J98.4 - Other disorders of lung Medications: Discontinued benzonatate Discontinued Reason: Patient no longer taking 100 mg PO TID PRN 15 caps 0RF cough amoxicillin-pot clavulanate 875-125 mg Discontinued Reason: No Longer Medically Relevant 1 tab PO BID 20 tabs 0RF levofloxacin Discontinued Reason: Patient Completed Course 750 mg PO DAILY 9 tabs 0RF Coding Level of Care Code New Pt Level 4 (37079) Diagnoses Cough R05.9 Recurrent pneumonia J18.9 Environmental allergies Z91.09 Lung cyst J98.4
[2024-07-06 10:21] VITALS: BP 138/84; PULSE 101; O2SAT 98; BMI 40.1
--- OUTSIDE RECORDS SUMMARY | 2024-07-06 11:01 | XMS_ITS | Clinical Summary ---
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 Role Phone Unavailable Primary Care Provider Unavailabl e Social History Tobacco Use Types Packs/Day Years Used Date Smoking Tobacco: Never Assessed Sex and Gender Information Value Date Recorded Sex Assigned at Not on file Gender Identity Not on file Sexual Orientation Not on file Plan of Treatment Health Maintenance Due Date Last Done Comments Breast Cancer Screening 1982 DTaP,Tdap,and Td Vaccines (1 - Tdap) 2001 Hepatitis B Vaccines (1 of 3 - 19+ 3-dose series) 2001 Cervical Cancer Screening: P ap Smear 2003 Depression Screening 05/04/2022 HIV Screening 05/04/2022 Hepatitis C Screening 05/04/2022 Social Influencers of Health Screening 05/04/2022 COVID-19 Vaccine (2023-2 5 season) 2024 Influenza Vaccine (#1) 2024 HIB Vaccines Aged Out No longer eligi ble based on patient's age to complete this topic HPV Vaccines Aged Out No longer eligi ble based on patient's age to complete this topic Hepatitis A Vaccines Aged Out No long er eligible based on patient's age to complete this topic IPV Vaccines Aged Out No longer eligi ble based on patient's age to complete this topic MMR Vaccines Aged Out No longer eligi ble based on patient's age to complete this topic Meningococcal ACWY Vaccine Aged Out N o longer eligible based on patient's age to complete this topic Pneumococcal Vaccine: Pediat rics (0 to 5 Years) and At-Risk Patients (6 to 64 Years) Aged Out No longer eligible b ased on patient's age to complete this topic RSV Immunization Patients Un velasquez 20 months Aged Out No longer eligible b ased on patient's age to complete this topic Varicella Vaccines Aged Out No longer eligible based on patient's age to complete this topic
== END 2024-07-06 10:44 | disposition home or self-care (01) ==
PROVIDERS: PCP Physician Assistant Medical; Referring Provider Emergency Medicine; Visit Provider Internal Medicine Pulmonary Disease
DX: R05.9 Cough, unspecified (principal); J18.9 Pneumonia, unspecified organism; Z91.09 Other allergy status, other than to drugs and biological substances; J98.4 Other disorders of lung
CPT/HCPCS: 99204

== ENCOUNTER 2024-08-14 14:38 | Outpatient (REF) | payer OTHER, SELFPAY ==
--- NOTE | 2024-08-14 14:44 | PFT_ITS ---
Flows: FEV1: 99 % of predicted at 2.48 L FVC: 94 % of predicted at 2.85 L FEV1/FVC: 87 % Bronchodilator response: Absent Volumes: Total lung capacity: 80 % of predicted at 3.52 L Residual volume: 59 % of predicted at 0.66 L Slow vital capacity: 87 % of predicted at 2.85 L Expiratory reserve volume: 1 % of predicted at 0.01 L Diffusion capacity: Normal Impression: No obstructive or restrictive ventilatory defect. No bronchodilator response. Decreased expiratory reserve volume suggests extrathoracic restriction likely secondary to abdominal obesity. MTDD
[2024-08-14 15:31] VITALS: PULSE 84
--- OUTSIDE RECORDS SUMMARY | 2024-08-14 17:56 | XMS_ITS | Clinical Summary ---
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
== END 2024-08-14 14:39 | disposition home or self-care (01) ==
LOC: HO.RESP 14:38
PROVIDERS: PCP Physician Assistant Medical; Visit Provider Internal Medicine Pulmonary Disease
DX: R05.9 Cough, unspecified (principal)
CPT/HCPCS: 94010; 94640; 94727; 94729

== ENCOUNTER → 2024-08-14 14:44 | Outpatient (BNV) | payer OTHER, SELFPAY | PROVIDERS: PCP Physician Assistant Medical; Visit Provider Internal Medicine Pulmonary Disease | DX: R05.9 Cough, unspecified (principal) | CPT/HCPCS: 94060; 94727; 94729 ==

== ENCOUNTER 2024-08-15 14:48 | Outpatient (AMB) | payer OTHER, SELFPAY ==
[2024-08-15 14:53] VITALS: BP 114/72; PULSE 91; O2SAT 98; BMI 40.3
--- NOTE | 2024-08-15 14:53 | MHC.OFFVIS ---
Vital Signs 08/15/24 14:53 Height 4 ft 11 in Weight 199 lb 8.293 oz BMI 40.3 BP 114/72 Blood Pressure Location Lt brachial Position Sitting Pulse 91 Pulse Source Doppler Pulse Oximetry (%) 98 Oxygen Delivery Method Room Air Intake Visit Reasons: Pneumonia Allergies No Known Allergies [No Known Allergies*] Allergy (Verified 08/15/24 14:56) HPI HPI Pneumonia: Details: 44-year-old lady with underlying history referred for pulmonary evaluation as patient has had 3 pneumonias over the course of the last 16 months. Patient is also complaining of chronic nonproductive cough ongoing for last year and half since she had COVID-19. Patient denies GERD symptoms. Her cough does get worse at nighttime. She has been using codeine syrup with some relief. Patient was tried on prednisone with no significant changes in her cough. She denies prior personal or family history of lung disease. After the last office visit patient has completed her immunologic studies showing no significant immune component to her symptoms. She also completed her pulmonary function test that shows only mild restrictive physiology with no significant bronchodilator response. She continues with what is essentially a chronic nonproductive cough. Review of Systems Const Denies daytime sleepiness, Denies excessive sweating, Denies fatigue, Denies fever(s), Denies lethargy, Denies malaise, Denies night sweats, Denies snoring and Denies weight loss Eyes Denies blurry vision and Denies itchy eyes ENT Denies nasal congestion, Denies post nasal drip, Denies sinus pain, Denies sinus pressure and Denies other ( Thrush) Card Denies chest pain, Denies pedal edema, Denies dyspnea, Denies orthopnea and Denies paroxysmal nocturnal dyspnea Resp Reports cough, Denies hemoptysis, Denies excessive phlegm production, Denies dyspnea, Denies snoring and Denies wheezing GI Denies abdominal pain and Denies heartburn Musc Denies myalgias, Denies arthralgias and Denies joint swelling Skin/Breast Denies rash Neuro Denies memory loss and Denies seizure-like activity Psych Denies abnormal sleep pattern, Denies anxiety and Denies memory loss Endo Denies excessive sweating, Denies fatigue and Denies heat intolerance Marquise/Lymph Denies easy bruising Aller/Immun Denies itchy eyes, Denies seasonal rhinorrhea and Denies wheezing Physical Exam Vital Signs: Last Vital Signs Pulse 91 03/12/25 14:53 BP 114/72 08/15/24 14:53 Pulse Ox 98 08/15/24 14:53 Oxygen Delivery Method Room Air 08/15/24 14:53 BMI result Body Mass Index 40.3 Const General: no acute distress and alert Nutritional Appearance: not obese Orientation/consciousness: Other orientation findings ( oriented) HEENT Head: Yes atraumatic Eyes General: appearance normal, both eyes and all related structures Sclerae: sclerae normal EOM: EOMs intact bilaterally Neck Neck: Yes supple Lymphatic: no lymphadenopathy noted Resp Effort & Inspection: normal respiratory effort and no use of accessory muscles Auscultation: clear to auscultation bilaterally Cardio Rate: regular rate Rhythm: regular rhythm Heart sounds: no gallops, no murmurs and no rubs Skin General skin exam: other ( warm) Extrem General: No clubbing, No cyanosis and No edema Assessment & Plan Assessment & Plan (1) Environmental allergies: Code(s): Z91.09 - Other allergy status, other than to drugs and biological substances Category: Medical Plan: Laboratory studies reviewed, no significant allergic/immunologic component to current symptoms. (2) Cough: Code(s): R05.9 - Cough, unspecified Category: Medical Plan: Chronic cough of unclear etiology with no significant GERD or reactive airway disease component. Will start on empiric gabapentin. Medications: New gabapentin 300 mg PO BEDTIME 30 caps 3RF Coding Level of Care Code Est Pt Level 4 (42850) Diagnoses Environmental allergies Z91.09 Cough R05.9
--- OUTSIDE RECORDS SUMMARY | 2024-08-15 17:26 | XMS_ITS | Clinical Summary ---
Author Organization [facility] Address [address] [place] [address] Care Team Providers Care Storage Solutions Architect Name Role Phone Unavailable Primary Care Provider [...]
== END 2024-08-15 15:04 | disposition home or self-care (01) ==
LOC: HO.HPS 14:48
PROVIDERS: PCP Physician Assistant Medical; Visit Provider Internal Medicine Pulmonary Disease
DX: Z91.09 Other allergy status, other than to drugs and biological substances (principal); R05.9 Cough, unspecified
CPT/HCPCS: 99214

== ENCOUNTER → 2024-08-15 14:48 | Outpatient (BNVA) | payer OTHER, SELFPAY | PROVIDERS: PCP Physician Assistant Medical; Visit Provider Internal Medicine Pulmonary Disease | DX: Z91.09 Other allergy status, other than to drugs and biological substances (principal); R05.9 Cough, unspecified ==

== ENCOUNTER 2024-11-26 15:17 | Outpatient (REF) | payer OTHER, SELFPAY ==
--- NOTE | ~2024-11-26 | CT_ITS ---
EXAMINATION: CT CHEST WITHOUT CONTRAST CLINICAL INFORMATION: J98.4 - Other disorders of lung DLP: 218 mGY*cm COMPARISON: June 08, 2024 TECHNIQUE: Multidetector volumetric CT imaging of the chest was done. Axial MIP volume rendering provided. Sagittal and coronal reformatted images were obtained. This CT examination was performed using dose optimization techniques as appropriate, variously including the following: *Automated exposure control *Adjustment of mA and/or kV according to patient size (this includes techniques or standardized protocols for targeted exams where dose is matched to indication/reason for exam; i.e. extremities or head) *Use of iterative reconstruction technique FINDINGS: LUNGS: Airspace opacity in the posterior basal right lower lobe has resolved since the prior examination. Lungs are clear. MEDIASTINUM: No adenopathy or other abnormalities. CORONARY ARTERY CALCIFICATION: None visualized on this study. PLEURA: There is no pleural effusion. No pleural mass or thickening. AXILLA: Chronic calcified nodule is present in the left axilla. UPPER ABDOMEN: Unremarkable. OSSEOUS STRUCTURES: Unremarkable. CT/CT chest wo IV con IMPRESSION: Unremarkable examination. Fleischner guidelines were followed. Electronically signed by: Mendoza Barber MD 11/26/2024 04:11 PM EDT
--- OUTSIDE RECORDS SUMMARY | 2024-11-26 16:51 | XMS_ITS | Clinical Summary ---
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
== END 2024-11-26 15:18 | disposition home or self-care (01) ==
LOC: HO.CT 15:17
PROVIDERS: PCP Physician Assistant Medical; Visit Provider Internal Medicine Pulmonary Disease
DX: J98.4 Other disorders of lung (principal)
CPT/HCPCS: 71250

== ENCOUNTER → 2024-11-26 15:35 | Outpatient (BNV) | payer OTHER, SELFPAY | PROVIDERS: PCP Physician Assistant Medical; Visit Provider Radiology Diagnostic Radiology | DX: J98.4 Other disorders of lung (principal) | CPT/HCPCS: 71250 ==